=== PATIENT | female | born 1935 | race Caucasian/White ===

== ENCOUNTER 2020-05-01 11:20 | Emergency (ER) | payer MEDICARE, OTHER ==
[2020-05-01 12:37] LABS: BASOPHIL 0.3 % (0-2); HCT 42.7 % (37.0-47.0); LYMPHOCYTE 28.2 % (15-48); MCH 30.4 pg (25.0-31.0); MCHC 32.8 g/dL (32.0-36.0); MCV 92.8 fL (78.0-100.0); MONOCYTE 5.8 % (0-12); MPV 8.8 fL (6.0-9.5); NEUTROPHIL 63.7 % (41-80); NRBC 0; PLT 253 K/uL (150-400); RDW 12.5 % (11.5-14.0); WBC 5.9 K/uL (4.0-10.5)
[2020-05-01 12:54] LABS: BUN/CREAT RATIO (CALC) 21.1 RATIO; CREATININE 0.71 mg/dL (0.51-0.95); POTASSIUM 3.6 mmol/L (3.5-5.1)
[2020-05-01] MEDS ORDERED: MOBIC7.5 MG PO (13:25)
[2020-05-01] MEDS ORDERED: PRINIVIL10 MG PO (13:26)
== END 2020-05-01 13:46 | disposition home or self-care (01) ==
LOC: FER 11:20
PROVIDERS: Emergency Medicine
DX: M25.562 Pain in left knee (principal); I10 Essential (primary) hypertension
CPT/HCPCS: 36415; 71046; 73564; 80048; 85025; 93005